=== PATIENT | female | born 1995 | race Two or more races ===

== ENCOUNTER 2017-03-28 12:33 | Inpatient (IN) | payer OTHER ==
[2017-03-28] MEDS ORDERED: Sodium Chloride 0.9% 10 ML Syringe FLUSH PRN (13:29)
[2017-03-28] MEDS ORDERED: Sodium Chloride 0.9% 2.5 ML Syringe FLUSH PRN (13:29)
[2017-03-28] MEDS ORDERED: Carboprost Tromethamine 250 MCG/1 ML Amp IM PRN (13:29)
[2017-03-28] MEDS ORDERED: Water For Irrigation,Sterile 1,000 ML Container IRR PRN (13:29)
[2017-03-28] MEDS ORDERED: Butorphanol 1 MG/ML SDV IVPUSH PRN (13:29)
[2017-03-28] MEDS ORDERED: Methylergonovine 0.2 MG/1 ML Amp IM PRN (13:29)
[2017-03-28] MEDS ORDERED: Nalbuphine 10 MG/1 ML Vial IVPUSH PRN (13:29)
[2017-03-28] MEDS ORDERED: Lidocaine 1% 50 ML MDV INJECT PRN (13:29)
[2017-03-28] MEDS ORDERED: Misoprostol 200 MCG Tab PO PRN (13:29)
[2017-03-28] MEDS ORDERED: Oxytocin/Lactated Ringers 30 UNIT/500 ML BAG IV SCH (13:30)
--- NOTE | 2017-03-28 14:41 | PCM.LDHP ---
L&D History of Present Illness - General Date of Service: 03/28/17 Admit Problem/Dx: Patient Status Order with Admit Dx/Problem 03/28/17 12:48 Patient Status [ADT] Routine 03/28/17 13:29 Patient Status [ADT] Routine Admission Diagnosis/Problem Admission Diagnosis/Problem 03/28/17 14:38 21 yo , EDC 03/21/2017 41 wks today. AB+, RI, GBSneg. 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 General: Reports: No Symptoms HEENT: Reports: No Symptoms Pulmonary: Reports: No Symptoms Cardiovascular: Reports: No Symptoms Gastrointestinal: Reports: No Symptoms Genitourinary: Reports: No Symptoms Musculoskeletal: Reports: No Symptoms Skin: Reports: No Symptoms Psychiatric: Reports: No Symptoms Neurological: Reports: No Symptoms Hematologic/Lymphatic: Reports: No Symptoms Immunologic: Reports: No Symptoms L&D Exam - Exam Exam: See Below - Vital Signs Weight: 73.482 kg - Exam General: alert, oriented HEENT: Hearing intact Lungs: Clear to auscultation, Normal respiratory effort Cardiovascular: regular rate, regular rhythm Abdomen: Soft (gravid) Rectal Exam: Deferred Genitourinary: Normal external exam Back Exam: Full Range of Motion Extremities: normal inspection Skin: warm, dry, intact Neurological: cranial nerves intact Psychiatric: alert, normal affect, normal mood - Patient Data Lab Results last 24 hrs: Laboratory Results - last 24 hr 03/28/17 Range/Units 13:49 WBC 7.46 (4.0-11.0) K/uL RBC 4.14 L (4.30-5.90) M/uL Hgb 13.1 (12.0-16.0) g/dL Hct 38.3 (36.0-46.0) % MCV 92.5 (80.0-98.0) fL MCH 31.6 (27.0-32.0) pg MCHC 34.2 (31.0-37.0) g/dL RDW Std Deviation 44.4 (28.0-62.0) fl RDW Coeff of Amairani 13 (11.0-15.0) % Plt Count 182 (150-400) K/uL MPV 10.50 (7.40-12.00) fL Nucleated RBC % 0.0 /100WBC Nucleated RBCs # 0 K/uL Result Diagrams: 03/28/17 13:49 - Problem List (1) Supervision of normal IUP (intrauterine ) in multigravida SNOMED Code(s): 875668126, 771202112, 916001868 ICD Code: Z34.80 - ENCOUNTER FOR SUPRVSN OF NORMAL , UNSP TRIMESTER Status: Acute Current Visit: Yes Qualifiers: Trimester: third trimester Qualified Code(s): Z34.83 - Encounter for supervision of other normal , third trimester Problem List Initiated/Reviewed/Updated: Yes Orders Last 24hrs: Active Orders 24 hr Category Date Time Status Patient Status [ADT] Routine ADT 03/28/17 12:48 Active Patient Status [ADT] Routine ADT 03/28/17 13:29 Active Heart Tones [RC] CONTINUOUS Care 03/28/17 13:29 Active Non Stress Test [RC] PER UNIT ROUTINE Care 03/28/17 12:48 Active Non Stress Test [RC] PER UNIT ROUTINE Care 03/28/17 13:29 Active May Shower [RC] ASDIRECTED Care 03/28/17 13:29 Active Notify Provider [RC] PRN Care 03/28/17 13:29 Active Up ad Gaby [RC] ASDIRECTED Care 03/28/17 12:48 Active Up ad Gaby [RC] ASDIRECTED Care 03/28/17 13:29 Active Vaginal Exam [RC] Click To Edit Care 03/28/17 12:48 Active Vaginal Exam [RC] PRN Care 03/28/17 13:29 Active Vital Signs [RC] PER UNIT ROUTINE Care 03/28/17 12:48 Active Vital Signs [RC] PER UNIT ROUTINE Care 03/28/17 13:29 Active Clear Liquid Diet [DIET] Diet 03/28/17 Dinner Active TYPE AND SCREEN [BBK] Routine Lab 03/28/17 13:49 Received Butorphanol [Stadol] Med 03/28/17 13:29 Active 1 mg IVPUSH Q1H PRN Carboprost Tromethamine [Hemabate DS] Med 03/28/17 13:29 Active 250 mcg IM ASDIRECTED PRN Lactated Ringers [Ringers, Lactated] 1,000 ml Med 03/28/17 13:30 Active IV ASDIRECTED Lidocaine 1% [Xylocaine 1%] Med 03/28/17 13:29 Active 50 ml INJECT .ONCE PRN Methylergonovine [Methergine] Med 03/28/17 13:29 Active 0.2 mg IM ASDIRECTED PRN Misoprostol [Cytotec] Med 03/28/17 13:29 Active 200 mcg PO .ONCE PRN Nalbuphine [Nubain] Med 03/28/17 13:29 Active 10 mg IVPUSH Q1H PRN Sodium Chloride 0.9% [Saline Flush] Med 03/28/17 13:29 Active 10 ml FLUSH ASDIRECTED PRN Sodium Chloride 0.9% [Saline Flush] Med 03/28/17 13:29 Active 2.5 ml FLUSH ASDIRECTED PRN Water For Irrigation,Sterile [Sterile Water for Med 03/28/17 13:29 Active Irrigation] 1,000 ml IRR ASDIRECTED PRN Scalp Electrode [WOMSER] Per Unit Routine Oth 03/28/17 13:29 Ordered Peripheral IV Insertion Adult [OM.PC] Routine Oth 03/28/17 13:29 Ordered Resuscitation Status Routine Resus Stat 03/28/17 12:48 Ordered Medication Orders Butorphanol Tartrate (Stadol) 1 mg IVPUSH Q1H PRN PRN Reason: Pain Carboprost Tromethamine (Hemabate Ds) 250 mcg IM ASDIRECTED PRN PRN Reason: Post Hemorrhage Lactated Ringer's (Ringers, Lactated) 1,000 mls @ 150 mls/hr IV ASDIRECTED SHAUN Lidocaine HCl (Xylocaine 1%) 50 ml INJECT .ONCE PRN PRN Reason: Laceration repair Methylergonovine Maleate (Methergine) 0.2 mg IM ASDIRECTED PRN PRN Reason: Post Hemorrhage Misoprostol (Cytotec) 200 mcg PO .ONCE PRN PRN Reason: Post Hemorrhage Nalbuphine HCl (Nubain) 10 mg IVPUSH Q1H PRN PRN Reason: Pain (severe 7-10) Stop: 03/28/17 15:30 Sodium Chloride (Saline Flush) 10 ml FLUSH ASDIRECTED PRN PRN Reason: Keep Vein Open Sodium Chloride (Saline Flush) 2.5 ml FLUSH ASDIRECTED PRN PRN Reason: Keep Vein Open Sterile Water (Sterile Water For Irrigation) 1,000 ml IRR ASDIRECTED PRN PRN Reason: delivery Assessment/Plan Comment:: Labor A: 21 yo , EDC 03/21/2017 41 wks today. AB+, RI, GBSneg. Active labor, intact P: Admit to L&D, epidural prn. Anticipate
[2017-03-28] MEDS: Lactated Ringers 1,000 ML IV SCH ×3 (17:07→18:05)
--- NOTE | 2017-03-28 17:28 | PCM.PREANE ---
Preanesthetic Assessment - Anesthesia/Transfusion/Family Hx Anesthesia History: Prior Anesthesia Without Reaction Family History of Anesthesia Reaction: No Transfusion History: No Prior Transfusion(s) - Review of Systems General: No Symptoms Pulmonary: No Symptoms Cardiovascular: No Symptoms Gastrointestinal: No symptoms Neurological: No Symptoms Other: Reports: None - Physical Assessment NPO Status Date: 03/28/17 NPO Status Time: 18:19 (cl liquids) Height: 1.68 m Weight: 73.482 kg ASA Class: 2 Mental Status: Alert & Oriented x3 Airway Class: Mallampati = 2 Dentition: Reports: Normal Dentition Thyro-Mental Finger Breadths: 3 Mouth Opening Finger Breadths: 3 ROM/Head Extension: Full Lungs: Clear to auscultation, Normal respiratory effort Cardiovascular: Regular Rate, Regular Rhythm - Lab Values: Laboratory Last Values WBC 7.46 K/uL (4.0-11.0) 03/28/17 13:49 RBC 4.14 M/uL (4.30-5.90) L 03/28/17 13:49 Hgb 13.1 g/dL (12.0-16.0) 03/28/17 13:49 Hct 38.3 % (36.0-46.0) 03/28/17 13:49 MCV 92.5 fL (80.0-98.0) 03/28/17 13:49 MCH 31.6 pg (27.0-32.0) 03/28/17 13:49 MCHC 34.2 g/dL (31.0-37.0) 03/28/17 13:49 RDW Std Deviation 44.4 fl (28.0-62.0) 03/28/17 13:49 RDW Coeff of Amairani 13 % (11.0-15.0) 03/28/17 13:49 Plt Count 182 K/uL (150-400) 03/28/17 13:49 MPV 10.50 fL (7.40-12.00) 03/28/17 13:49 Nucleated RBC % 0.0 /100WBC 03/28/17 13:49 Nucleated RBCs # 0 K/uL 03/28/17 13:49 Blood Type AB POSITIVE 03/28/17 13:49 Antibody Screen NEGATIVE 03/28/17 13:49 - Allergies Allergies/Adverse Reactions: Allergies Allergy/AdvReac Type Severity Reaction Status Date / Time No Known Allergies Allergy Verified 03/28/17 12:47 - Blood Blood Available: Yes Product(s) Available: PRBC - Acknowledgements Anesthesia Type Planned: Epidural Pt an Appropriate Candidate for the Planned Anesthesia: Yes Alternatives and Risks of Anesthesia Discussed w Pt/Guardian: Yes Pt/Guardian Understands and Agrees with Anesthesia Plan: Yes 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: - Infectious Disease History Infectious Disease History: Reports: Chicken pox - Past Surgical History HEENT Surgical History: Reports: Other (see below) Other HEENT Surgeries/Procedures: wisdom tooth extraction - SUBSTANCE USE Smoking Status *Q: Never Smoker Recreational Drug Use History: No - HOME MEDS Home Medications: Home Meds PNV95/Ferrous Fumarate/FA [ Tablet] 1 each PO 03/28/17 [History] - CURRENT (IN HOUSE) MEDS Current Meds: Current Medications Butorphanol Tartrate (Stadol) 1 mg IVPUSH Q1H PRN PRN Reason: Pain Carboprost Tromethamine (Hemabate Ds) 250 mcg IM ASDIRECTED PRN PRN Reason: Post Hemorrhage Lactated Ringer's (Ringers, Lactated) 1,000 mls @ 150 mls/hr IV ASDIRECTED SHAUN Last Admin: 03/28/17 17:07 Dose: 999 mls/hr Lidocaine HCl (Xylocaine 1%) 50 ml INJECT .ONCE PRN PRN Reason: Laceration repair Methylergonovine Maleate (Methergine) 0.2 mg IM ASDIRECTED PRN PRN Reason: Post Hemorrhage Misoprostol (Cytotec) 200 mcg PO .ONCE PRN PRN Reason: Post Hemorrhage Sodium Chloride (Saline Flush) 10 ml FLUSH ASDIRECTED PRN PRN Reason: Keep Vein Open Sodium Chloride (Saline Flush) 2.5 ml FLUSH ASDIRECTED PRN PRN Reason: Keep Vein Open Sterile Water (Sterile Water For Irrigation) 1,000 ml IRR ASDIRECTED PRN PRN Reason: delivery Discontinued Medications Oxytocin/Lactated Ringer's (Pitocin In Lr 30 Units/500 Ml) 30 unit in 500 mls @ 999 mls/hr IV TITRATE SHAUN PRN Reason: 999 MUNITS/MIN Stop: 03/28/17 14:01 Nalbuphine HCl (Nubain) 10 mg IVPUSH Q1H PRN PRN Reason: Pain (severe 7-10) Stop: 03/28/17 15:30 - Free Text/Narrative Note: Labor Analgesia/Epidural Procedure start date: 03/28/17 time: 1735 Attending provider aware Chart reviewed Permit signed Labs reviewed VS/ FHR reviewed Pt identified/ID band Pt assessed Risks/Benefits discussed and accepted Monitors in place (BP, HR, SPO2) Patient, Site, Procedure Verification, Pause. Pain "8/10" Fluid bolus infused (fluid type and amount): 1000 ml LR with infusion ongoing Position: Sitting @ 1745 Prep: Betadine X 3 Sterile Drape Intradermal Wheal: 3 ml 1% Lidocaine Regional placement level: L4-5 Needle: 17 g Tuohy Approach: Midline Technique: MANUEL glass syringe with 3 ml Sterile water MANUEL needle depth: 5 cm Paresthesia: None Fluid Obtained: None Catheter insertion time: 175 Catheter depth at skin: 20 cm Test Dose Time: 175 RX: 3 ml 1.5% lidocaine with 1:200,000 epi Response: Negative Loading dose Time: 3492-8660 RX: 100 mcg fentanyl followed by 10 ml 0.2% ropivacaine in 2 ml increments over 10 minutes Pt position: semi fowlers with OSCAR Continuous infusion Start Time: 1806 RX: 100 ml 0.2% ropivacaine with 200 mcg fentanyl added [2mcg/ml] Continuous infusion rate: 8 ml/hr 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 ) Procedure end date: 03/28/17 time: 1830
[2017-03-28] MEDS ORDERED: fentaNYL 100 MCG/2 ML SDV ONE (17:33)
[2017-03-28] MEDS ORDERED: Ropivacaine 0.2% 2 MG/ML 20 ML SDV ONE (17:34)
[2017-03-28] MEDS ORDERED: Ropivacaine HCl/PF 100 ML ONE (17:34)
[2017-03-28] MEDS ORDERED: Oxytocin/Lactated Ringers 30 UNIT/500 ML BAG ONE (21:01)
[2017-03-28] MEDS ORDERED: Ibuprofen 800 MG Tab PO PRN (21:42)
[2017-03-28] MEDS ORDERED: Docusate Sodium 100 MG Cap PO PRN (21:42)
[2017-03-28] MEDS ORDERED: Witch Hazel Medicated Pads 40/Jar TOP PRN (21:42)
[2017-03-28] MEDS ORDERED: Lanolin 100% Cream 7 GM Tube TOP PRN (21:42)
[2017-03-28] MEDS ORDERED: Benzocaine/Menthol 20%-0.5% Spray 78 GM Cannister TOP PRN (21:42)
[2017-03-28] MEDS ORDERED: Acetaminophen 500 MG Tab PO PRN ×2 (21:42)
[2017-03-28] MEDS ORDERED: oxyCODONE 5 MG Tab PO PRN (21:42)
[2017-03-28] MEDS ORDERED: Ibuprofen 400 MG Tab PO PRN (21:42)
[2017-03-28] MEDS ORDERED: Bisacodyl 10 MG Supp RECTAL PRN (21:42)
--- NOTE | 2017-03-28 21:48 | PCM.DEL ---
L & D Note - General Info Date of Service: 03/28/17 Mother's Due Date: 03/21/17 - Delivery Note Labor: spontaneous Delivery Outcome: Livebirth Infant Delivery Method: Spontaneous Vaginal Delivery Infant Delivery Mode: Spontaneous Presentation: Vertex Nuchal cord: none Anesthesia Type: Epidural Amniotic Fluid Description: Clear Episiotomy Type: None Laceration: 1st degree Suture size: 3-0 Placenta: intact, spontaneous Cord: 3 vessels Resuscitation needed: No [place]: stimulated Score 1 min: 8 Score 5 min: 9 Second Stage Interventions: Reports: Pushing Effectively Delivery Comments (Free Text/Narrative):: of viable girl over intact perineum, Head delivered with good pushing. FOB and I assisted the shoulders and body to follow. to mothers abdomen with RN at for evaluation. Delayed cord clamping. Pitocin to IVF. Cord clamped and cut by FOB. Placenta delivered grossly intact. Inspection noted 1st degree lac that was repaired in the usual manor with a 3-0 fred. Fundus firm. Bimanual normal. EBL 150cc, APGARS 8/9, Wt: 9lb 13oz. Mother and infant left in stable condition for recovery. Counts correct. - General Info Date of Service: 03/28/17 Admission Dx/Problem (Free Text): Patient Status Order with Admit Dx/Problem 03/28/17 12:48 Patient Status [ADT] Routine 03/28/17 13:29 Patient Status [ADT] Routine Admission Diagnosis/Problem Admission Diagnosis/Problem 03/28/17 14:38 21 yo , EDC 03/21/2017 41 wks today. AB+, RI, GBSneg. Active labor, intact Functional Status: Reports: pain controlled - Review of Systems General: Reports: No Symptoms HEENT: Reports: no symptoms Pulmonary: Reports: no symptoms Cardiovascular: Reports: No Symptoms Gastrointestinal: Reports: No symptoms Genitourinary: Reports: no symptoms Musculoskeletal: Reports: no symptoms Skin: Reports: no symptoms Neurological: Reports: No Symptoms Psychiatric: Reports: no symptoms - Patient Data Weight - most recent: 73.482 kg Lab Results last 24 hrs: Laboratory Results - last 24 hr 03/28/17 03/28/17 Range/Units 13:49 13:49 WBC 7.46 (4.0-11.0) K/uL RBC 4.14 L (4.30-5.90) M/uL Hgb 13.1 (12.0-16.0) g/dL Hct 38.3 (36.0-46.0) % MCV 92.5 (80.0-98.0) fL MCH 31.6 (27.0-32.0) pg MCHC 34.2 (31.0-37.0) g/dL RDW Std Deviation 44.4 (28.0-62.0) fl RDW Coeff of Amairani 13 (11.0-15.0) % Plt Count 182 (150-400) K/uL MPV 10.50 (7.40-12.00) fL Nucleated RBC % 0.0 /100WBC Nucleated RBCs # 0 K/uL Blood Type AB POSITIVE Antibody Screen NEGATIVE Med Orders - Current: Current Medications Acetaminophen (Tylenol Extra Strength) 500 mg PO Q4H PRN PRN Reason: Pain Acetaminophen (Tylenol Extra Strength) 1,000 mg PO Q4H PRN PRN Reason: Pain Benzocaine/Menthol (Dermoplast Pain Relief 20%-0.5% [place]) 78 gm TOP ASDIRECTED PRN PRN Reason: Perineal Comfort Measure Bisacodyl (Dulcolax) 10 mg RECTAL .ONCE PRN PRN Reason: Constipation Docusate Sodium (Colace) 100 mg PO BID PRN PRN Reason: Constipation Emollient Ointment (Lansinoh Hpa) 0 gm TOP ASDIRECTED PRN PRN Reason: Sore Nipples Ibuprofen (Motrin) 400 mg PO Q4H PRN PRN Reason: Pain Ibuprofen (Motrin) 800 mg PO Q6H PRN PRN Reason: Pain Oxycodone HCl (Oxycodone) 5 mg PO Q2H PRN PRN Reason: Pain Witch Shey (Tucks) 1 pad TOP ASDIRECTED PRN PRN Reason: comfort care Discontinued Medications Butorphanol Tartrate (Stadol) 1 mg IVPUSH Q1H PRN PRN Reason: Pain Carboprost Tromethamine (Hemabate Ds) 250 mcg IM ASDIRECTED PRN PRN Reason: Post Hemorrhage Fentanyl (Sublimaze) Confirm Administered Dose 300 mcg .ROUTE .STK-MED ONE Stop: 03/28/17 17:34 Lactated Ringer's (Ringers, Lactated) 1,000 mls @ 150 mls/hr IV ASDIRECTED SHAUN Last Admin: 03/28/17 18:05 Dose: 150 mls/hr Oxytocin/Lactated Ringer's (Pitocin In Lr 30 Units/500 Ml) 30 unit in 500 mls @ 999 mls/hr IV TITRATE SHAUN PRN Reason: 999 MUNITS/MIN Stop: 03/28/17 14:01 Last Admin: 03/28/17 21:17 Dose: 999 munits/min, 999 mls/hr Ropivacaine (Naropin 0.2%) Confirm Administered Dose 100 mls @ as directed .ROUTE .STK-MED ONE Stop: 03/28/17 17:35 Oxytocin/Lactated Ringer's (Pitocin In Lr 30 Units/500 Ml) Confirm Administered Dose 30 unit in 500 mls @ as directed .ROUTE .STK-MED ONE Stop: 03/28/17 21:02 Lidocaine HCl (Xylocaine 1%) 50 ml INJECT .ONCE PRN PRN Reason: Laceration repair Methylergonovine Maleate (Methergine) 0.2 mg IM ASDIRECTED PRN PRN Reason: Post Hemorrhage Misoprostol (Cytotec) 200 mcg PO .ONCE PRN PRN Reason: Post Hemorrhage Nalbuphine HCl (Nubain) 10 mg IVPUSH Q1H PRN PRN Reason: Pain (severe 7-10) Stop: 03/28/17 15:30 Ropivacaine (Naropin 0.2%) Confirm Administered Dose 20 ml .ROUTE .STK-MED ONE Stop: 03/28/17 17:35 Sodium Chloride (Saline Flush) 10 ml FLUSH ASDIRECTED PRN PRN Reason: Keep Vein Open Sodium Chloride (Saline Flush) 2.5 ml FLUSH ASDIRECTED PRN PRN Reason: Keep Vein Open Sterile Water (Sterile Water For Irrigation) 1,000 ml IRR ASDIRECTED PRN PRN Reason: delivery - Exam General: alert, oriented, cooperative, no acute distress Lungs: Normal respiratory effort Abdomen: soft, no tenderness, no distension (Female) Exam: Normal External Exam, Normal Bimanual Exam, Vaginal Bleeding, Vaginal Tears Back Exam: Full Range of Motion Extremities: no edema Skin: warm, dry, intact Wound/Incisions: healing well Neurological: no new focal deficit Psy/Mental Status: alert, normal affect, normal mood - Problem List & Annotations (1) Supervision of normal IUP (intrauterine ) in multigravida SNOMED Code(s): 010044121, 304718331, 233689842 Code(s): Z34.80 - ENCOUNTER FOR SUPRVSN OF NORMAL , UNSP TRIMESTER Status: Acute Priority: High Current Visit: Yes Qualifiers: Trimester: third trimester Qualified Code(s): Z34.83 - Encounter for supervision of other normal , third trimester (2) (normal spontaneous vaginal delivery) SNOMED Code(s): 36010072 Code(s): O80 - ENCOUNTER FOR FULL-TERM UNCOMPLICATED DELIVERY Status: Acute Priority: Medium Current Visit: Yes - Problem List Review Problem List Initiated/Reviewed/Updated: Yes - My Orders Last 24 Hours: My Active Orders 03/28/17 12:48 Non Stress Test [RC] PER UNIT ROUTINE Up ad Gaby [RC] ASDIRECTED Vaginal Exam [RC] Click To Edit Vital Signs [RC] PER UNIT ROUTINE 03/28/17 13:29 Heart Tones [RC] CONTINUOUS Non Stress Test [RC] PER UNIT ROUTINE May Shower [RC] ASDIRECTED Notify Provider [RC] PRN Up ad Gaby [RC] ASDIRECTED Vaginal Exam [RC] PRN Vital Signs [RC] PER UNIT ROUTINE 03/28/17 21:42 May Shower [RC] ASDIRECTED Up ad Gaby [RC] ASDIRECTED Vital Signs [RC] PER UNIT ROUTINE Acetaminophen [Tylenol Extra Strength] 1,000 mg PO Q4H PRN Acetaminophen [Tylenol Extra Strength] 500 mg PO Q4H PRN Benzocaine/Menthol [Dermoplast Pain Relief 20%-0.5% [place]] 78 gm TOP ASDIRECTED PRN Bisacodyl [Dulcolax] 10 mg RECTAL .ONCE PRN Docusate Sodium [Colace] 100 mg PO BID PRN Ibuprofen [Motrin] 400 mg PO Q4H PRN Ibuprofen [Motrin] 800 mg PO Q6H PRN Lanolin [Lansinoh HPA] See Dose Instructions TOP ASDIRECTED PRN Witch Shey [Tucks] 1 pad TOP ASDIRECTED PRN oxyCODONE 5 mg PO Q2H PRN Assess Lochia [WOMSER] Per Unit Routine Assess Uterine Involution [WOMSER] Per Unit Routine Peripheral IV Discontinue [OM.PC] Routine Resuscitation Status Routine 03/28/17 21:43 Patient Status [ADT] Routine 03/29/17 Breakfast Regular Diet [DIET] - Assessment Assessment:: of Girl Chanelle. 1st degree lac with repair. EBL 150cc, APGARS 8/9, Wt : 9lb 13oz. Stable - Plan Plan:: Labor A: 21 yo , EDC 03/21/2017 41 wks today. AB+, RI, GBSneg. Active labor, intact P: Admit to L&D, epidural prn. Anticipate Delivery: P: Routine pp plan of care
--- NOTE | 2017-03-29 07:47 | PCM.DCSUM1 ---
Discharge Summary - Hospital Course Free Text/Narrative:: Discharge home with . Follow up 6 weeks or sooner if needed. - Discharge Data Discharge Date: 03/29/17 Discharge Disposition: Home, Self-Care 01 Condition: Good - Discharge Diagnosis/Problem(s) (1) Supervision of normal IUP (intrauterine ) in multigravida SNOMED Code(s): 358537012, 289928082, 762705287 ICD Code: Z34.80 - ENCOUNTER FOR SUPRVSN OF NORMAL , UNSP TRIMESTER Status: Acute Priority: High Current Visit: Yes Qualifiers: Trimester: third trimester Qualified Code(s): Z34.83 - Encounter for supervision of other normal , third trimester (2) (normal spontaneous vaginal delivery) SNOMED Code(s): 00993994 ICD Code: O80 - ENCOUNTER FOR FULL-TERM UNCOMPLICATED DELIVERY Status: Acute Priority: Medium Current Visit: Yes - Patient Instructions Diet: Usual Diet as Tolerated Activity: As Tolerated, Rest and Relax Today Driving: May Drive Today Showering/Bathing: May Shower Notify Provider of: Fever, Increased Pain, Swelling and Redness, Nausea and/or Vomiting Other/Special Instructions: Discharge home with . Follow up 6 weeks or sooner if needed. - Discharge Plan Home Medications: Home Meds PNV95/Ferrous Fumarate/FA [ Tablet] 1 each PO 03/28/17 [History] - General Info Date of Service: 03/29/17 Admission Dx/Problem (Free Text: Patient Status Order with Admit Dx/Problem 03/28/17 12:48 Patient Status [ADT] Routine 03/28/17 13:29 Patient Status [ADT] Routine Admission Diagnosis/Problem Admission Diagnosis/Problem 03/28/17 14:38 21 yo , EDC 03/21/2017 41 wks today. AB+, RI, GBSneg. Active labor, intact Functional Status: Reports: pain controlled, tolerating diet, ambulating, urinating - Review of Systems General: Reports: No Symptoms HEENT: Reports: no symptoms Pulmonary: Reports: no symptoms Cardiovascular: Reports: No Symptoms Gastrointestinal: Reports: No symptoms Genitourinary: Reports: no symptoms Musculoskeletal: Reports: no symptoms Skin: Reports: no symptoms Neurological: Reports: No Symptoms Psychiatric: Reports: no symptoms - Patient Data Vitals - Most Recent: Last Vital Signs Temp 37.0 C 03/29/17 04:00 Pulse 94 03/29/17 04:00 Resp 14 03/29/17 04:00 BP 126/58 L 03/29/17 04:00 Pulse Ox 94 L 03/29/17 04:00 Weight - Most Recent: 73.482 kg Lab Results - Last 24 hrs: Laboratory Results - last 24 hr 03/28/17 03/28/17 Range/Units 13:49 13:49 WBC 7.46 (4.0-11.0) K/uL RBC 4.14 L (4.30-5.90) M/uL Hgb 13.1 (12.0-16.0) g/dL Hct 38.3 (36.0-46.0) % MCV 92.5 (80.0-98.0) fL MCH 31.6 (27.0-32.0) pg MCHC 34.2 (31.0-37.0) g/dL RDW Std Deviation 44.4 (28.0-62.0) fl RDW Coeff of Amairani 13 (11.0-15.0) % Plt Count 182 (150-400) K/uL MPV 10.50 (7.40-12.00) fL Nucleated RBC % 0.0 /100WBC Nucleated RBCs # 0 K/uL Blood Type AB POSITIVE Antibody Screen NEGATIVE Med Orders - Current: Current Medications Acetaminophen (Tylenol Extra Strength) 500 mg PO Q4H PRN PRN Reason: Pain Acetaminophen (Tylenol Extra Strength) 1,000 mg PO Q4H PRN PRN Reason: Pain Benzocaine/Menthol (Dermoplast Pain Relief 20%-0.5% [place]) 78 gm TOP ASDIRECTED PRN PRN Reason: Perineal Comfort Measure Last Admin: 03/28/17 21:55 Dose: 1 can Bisacodyl (Dulcolax) 10 mg RECTAL .ONCE PRN PRN Reason: Constipation Docusate Sodium (Colace) 100 mg PO BID PRN PRN Reason: Constipation Emollient Ointment (Lansinoh Hpa) 0 gm TOP ASDIRECTED PRN PRN Reason: Sore Nipples Last Admin: 03/28/17 21:55 Dose: 1 tube Ibuprofen (Motrin) 400 mg PO Q4H PRN PRN Reason: Pain Ibuprofen (Motrin) 800 mg PO Q6H PRN PRN Reason: Pain Oxycodone HCl (Oxycodone) 5 mg PO Q2H PRN PRN Reason: Pain Witch Shey (Tucks) 1 pad TOP ASDIRECTED PRN PRN Reason: comfort care Discontinued Medications Butorphanol Tartrate (Stadol) 1 mg IVPUSH Q1H PRN PRN Reason: Pain Carboprost Tromethamine (Hemabate Ds) 250 mcg IM ASDIRECTED PRN PRN Reason: Post Hemorrhage Fentanyl (Sublimaze) Confirm Administered Dose 300 mcg .ROUTE .STK-MED ONE Stop: 03/28/17 17:34 Lactated Ringer's (Ringers, Lactated) 1,000 mls @ 150 mls/hr IV ASDIRECTED FOR[facility], [facility]–1983 Last Admin: 03/28/17 18:05 Dose: 150 mls/hr Oxytocin/Lactated Ringer's (Pitocin In Lr 30 Units/500 Ml) 30 unit in 500 mls @ 999 mls/hr IV TITRATE SHAUN PRN Reason: 999 MUNITS/MIN Stop: 03/28/17 14:01 Last Admin: 03/28/17 21:17 Dose: 999 munits/min, 999 mls/hr Ropivacaine (Naropin 0.2%) Confirm Administered Dose 100 mls @ as directed .ROUTE .STK-MED ONE Stop: 03/28/17 17:35 Oxytocin/Lactated Ringer's (Pitocin In Lr 30 Units/500 Ml) Confirm Administered Dose 30 unit in 500 mls @ as directed .ROUTE .STK-MED ONE Stop: 03/28/17 21:02 Lidocaine HCl (Xylocaine 1%) 50 ml INJECT .ONCE PRN PRN Reason: Laceration repair Methylergonovine Maleate (Methergine) 0.2 mg IM ASDIRECTED PRN PRN Reason: Post Hemorrhage Misoprostol (Cytotec) 200 mcg PO .ONCE PRN PRN Reason: Post Hemorrhage Nalbuphine HCl (Nubain) 10 mg IVPUSH Q1H PRN PRN Reason: Pain (severe 7-10) Stop: 03/28/17 15:30 Ropivacaine (Naropin 0.2%) Confirm Administered Dose 20 ml .ROUTE .STK-MED ONE Stop: 03/28/17 17:35 Sodium Chloride (Saline Flush) 10 ml FLUSH ASDIRECTED PRN PRN Reason: Keep Vein Open Sodium Chloride (Saline Flush) 2.5 ml FLUSH ASDIRECTED PRN PRN Reason: Keep Vein Open Sterile Water (Sterile Water For Irrigation) 1,000 ml IRR ASDIRECTED PRN PRN Reason: delivery - Exam General: Reports: alert, oriented, cooperative, no acute distress Lungs: Reports: Clear to auscultation, Normal respiratory effort Cardiovascular: Reports: Regular Rate, Regular Rhythm Abdomen: Reports: soft, no tenderness, no distension (Female) Exam: Vaginal Bleeding Rectal (Female) Exam: Deferred Back Exam: Reports: Full Range of Motion Extremities: Reports: no edema, normal pulses, no calf tenderness Skin: Reports: warm, dry, intact Wound/Incisions: Reports: healing well Neurological: Reports: no new focal deficit Psy/Mental Status: Reports: alert, normal affect, normal mood *Q Meaningful Use (DIS) - VTE *Q VTE Criteria *Q: - Stroke *Q Stroke Criteria *Q: - AMI *Q AMI Criteria *Q:
[2017-03-29 16:18] VITALS: BP 119/76
== END 2017-03-29 19:00 | disposition home or self-care (01) | DRG 775 ==
LOC: MW.OBCHECK 12:33 → MW.OB 12:34 → OBSVTOIN 21:17 → MW.OB 03-29 02:11
PROVIDERS: ADMIT Obstetrics & Gynecology; ATTEND Advanced Practice Midwife
PROC: 10E0XZZ Delivery of Products of Conception, External Approach (ICD-10-PCS; principal; 2017-03-28)
PROC: 0HQ9XZZ Repair Perineum Skin, External Approach (ICD-10-PCS; 2017-03-28)
DX: O70.0 First degree perineal laceration during delivery (principal); Z3A.41 41 weeks gestation of pregnancy; Z37.0 Single live birth
CPT/HCPCS: 01967; 59025; 85027; 86850; 86900; 86901; A9270-GY; J7120

== ENCOUNTER 2018-05-29 08:57 | Inpatient (IN) | payer BC ==
--- NOTE | 2018-05-29 09:18 | PCM.HP ---
H&P History of Present Illness - General Date of Service: 05/29/18 Admit Problem/Dx: 22 yo EDC 06/03/2018 39 2/7wks Transferred care to us at 37 weeks. AB+, RI, GBS neg. 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: - Infectious Disease History Infectious Disease History: Reports: Chicken Pox - Past Surgical History HEENT Surgical History: Reports: Other (See Below) H&P Review of Systems - Review of Systems: Review Of Systems: See Below General: Reports: No Symptoms HEENT: Reports: No Symptoms Pulmonary: Reports: No Symptoms Cardiovascular: Reports: No Symptoms Gastrointestinal: Reports: No Symptoms Genitourinary: Reports: No Symptoms Musculoskeletal: Reports: No Symptoms Skin: Reports: No Symptoms Psychiatric: Reports: No Symptoms Neurological: Reports: No Symptoms Hematologic/Lymphatic: Reports: No Symptoms Immunologic: Reports: No Symptoms Exam - Exam Exam: See Below - Exam General: Alert, Oriented, Cooperative HEENT: Hearing Intact Lungs: Clear to Auscultation, Normal Respiratory Effort Cardiovascular: Regular Rate, Regular Rhythm, Normal S1, Normal S2 GI/Abdominal Exam: Soft (Female) Exam: Normal External Exam, Normal Bimanual Exam, Cervical Dilatation Rectal (Female) Exam: Deferred Back Exam: Normal Inspection, Full Range of Motion, NT Extremities: Normal Inspection, Normal Range of Motion, Non-Tender, No Pedal Edema, Normal Capillary Refill Skin: Warm, Dry, Intact Neurological: Cranial Nerves Intact, Reflexes Equal Bilateral, Strength Equal Bilateral, Normal Speech, Normal Tone Neuro Extensive - Mental Status: Alert, Oriented x3, Normal Mood/Affect, Normal Cognition, Memory Intact Neuro Extensive - Motor, Sensory, Reflexes: CN II-XII Intact Psychiatric: Alert, Normal Affect, Normal Mood - Problem List (1) Supervision of normal IUP (intrauterine ) in multigravida SNOMED Code(s): 112828291, 411036721, 268938476 ICD Code: Z34.80 - ENCOUNTER FOR SUPRVSN OF NORMAL , UNSP TRIMESTER Status: Acute Priority: High Current Visit: No Qualifiers: Trimester: third trimester Qualified Code(s): Z34.83 - Encounter for supervision of other normal , third trimester Problem List Initiated/Reviewed/Updated: Yes Assessment/Plan Comment:: A:22 yo EDC 06/03/2018 39 2/7wks Transferred care to us at 37 weeks. AB+ , RI, GBS neg. Active labor P: Admit, desires natural labor, encouraged to get out of be to bath or ball, anticipate . Dr Orlando updated
[2018-05-29] MEDS ORDERED: Butorphanol 1 MG/ML SDV IVPUSH PRN (09:26)
[2018-05-29] MEDS ORDERED: Sodium Chloride 0.9% 2.5 ML Syringe FLUSH PRN (09:26)
[2018-05-29] MEDS ORDERED: Misoprostol 200 MCG Tab PO PRN (09:26)
[2018-05-29] MEDS ORDERED: Water For Irrigation,Sterile 1,000 ML Container IRR PRN (09:26)
[2018-05-29] MEDS ORDERED: Nalbuphine 10 MG/ML 10 ML MDV IVPUSH PRN (09:26)
[2018-05-29] MEDS ORDERED: Lidocaine 1% 50 ML MDV INJECT PRN (09:26)
[2018-05-29] MEDS ORDERED: Methylergonovine 0.2 MG/1 ML Amp IM PRN (09:26)
[2018-05-29] MEDS ORDERED: Tranexamic Acid 1,000 MG in Sodium Chloride 0.9% 100 ML IV PRN (09:26)
[2018-05-29] MEDS ORDERED: Sodium Chloride 0.9% 10 ML Syringe FLUSH PRN (09:26)
[2018-05-29] MEDS ORDERED: Carboprost Tromethamine 250 MCG/1 ML Amp IM PRN (09:26)
[2018-05-29] MEDS ORDERED: Oxytocin/0.9 % Sodium Chloride 30 UNIT/500 ML BAG IV SCH (09:30)
[2018-05-29] MEDS ORDERED: Lactated Ringers 1,000 ML IV SCH (09:30)
[2018-05-29] MEDS ORDERED: Bisacodyl 10 MG Supp RECTAL PRN (11:13)
[2018-05-29] MEDS ORDERED: Benzocaine/Menthol 20%-0.5% Spray 78 GM Cannister TOP PRN (11:13)
[2018-05-29] MEDS ORDERED: Lanolin 100% Cream 7 GM Tube TOP PRN (11:13)
[2018-05-29] MEDS ORDERED: Ibuprofen 800 MG Tab PO PRN (11:13)
[2018-05-29] MEDS ORDERED: Acetaminophen 500 MG Tab PO PRN ×2 (11:13)
[2018-05-29] MEDS ORDERED: Witch Hazel Medicated Pads 40/Jar TOP PRN (11:13)
[2018-05-29] MEDS ORDERED: Ibuprofen 400 MG Tab PO PRN (11:13)
[2018-05-29] MEDS ORDERED: oxyCODONE 5 MG Tab PO PRN (11:13)
[2018-05-29] MEDS ORDERED: Docusate Sodium 100 MG Cap PO PRN (11:13)
--- NOTE | 2018-05-29 11:20 | PCM.DEL ---
L & D Note - General Info Date of Service: 05/29/18 Mother's Due Date: 06/03/18 - Delivery Note Labor: Spontaneous Delivery Outcome: Livebirth Infant Delivery Method: Spontaneous Vaginal Delivery-Single Delivery Mode: Spontaneous Presentation: Vertex Nuchal Cord: None Anesthetic: Lidocaine (Xylocaine) 1% Plain Local Anesthetic Volume: 1cc Amniotic Fluid Description: Clear Episiotomy Type: None Laceration: 1st Degree, Perineal Suture type: Vicryl Suture size: 3-0 Placenta: Intact, Spontaneous Cord: 3 Vessels Estimated Blood Loss: 100 Resuscitation Needed: No Score 1 min: 9 Score 5 min: 9 Second Stage Interventions: Reports: Pushing, Pulls Own Legs Back Delivery Comments (Free Text/Narrative):: of viable female over intact perineum, head delivered with great controlled pushing, shoulders and body followed easily. Infant with spont cry placed on mothers abd with RN at for evaluation. Delayed cord clamping, pitocin to IVF. Cord clamped x2 and cut by FOB. Placenta delivered grossly intact. Inspection noted 1st degree bird lac that was repaired with a 3-0 fred in the usual manor after local anes of lidocaine administered. Bimanual normal, EBL 100cc, APGARS 9/9 wt pending bonding. Mother and baby left in stable condition for recovery. - General Info Date of Service: 05/29/18 Admission Dx/Problem (Free Text): 22 yo EDC 06/03/2018 39 2/7wks Transferred care to us at 37 weeks. AB+, RI, GBS neg. Active labor Functional Status: Reports: Pain Controlled - Review of Systems General: Reports: No Symptoms HEENT: Reports: No Symptoms Pulmonary: Reports: No Symptoms Cardiovascular: Reports: No Symptoms Gastrointestinal: Reports: No Symptoms Genitourinary: Reports: No Symptoms Musculoskeletal: Reports: No Symptoms Skin: Reports: No Symptoms Neurological: Reports: No Symptoms Psychiatric: Reports: No Symptoms - Patient Data Weight - Most Recent: 77.111 kg Lab Results Last 24 Hours: Laboratory Results - last 24 hr 05/29/18 Range/Units 09:45 WBC 6.98 (4.0-11.0) K/uL RBC 3.92 L (4.30-5.90) M/uL Hgb 12.4 (12.0-16.0) g/dL Hct 36.5 (36.0-46.0) % MCV 93.1 (80.0-98.0) fL MCH 31.6 (27.0-32.0) pg MCHC 34.0 (31.0-37.0) g/dL RDW Std Deviation 44.1 (28.0-62.0) fl RDW Coeff of Amairani 13 (11.0-15.0) % Plt Count 170 (150-400) K/uL MPV 10.50 (7.40-12.00) fL Nucleated RBC % 0.0 /100WBC Nucleated RBCs # 0 K/uL Med Orders - Current: Current Medications Acetaminophen (Tylenol Extra Strength) 500 mg PO Q4H PRN PRN Reason: Pain Acetaminophen (Tylenol Extra Strength) 1,000 mg PO Q4H PRN PRN Reason: Pain Benzocaine/Menthol (Dermoplast Pain Relief 20%-0.5% [place]) 78 gm TOP ASDIRECTED PRN PRN Reason: Perineal Comfort Measure Bisacodyl (Dulcolax) 10 mg RECTAL .ONCE PRN PRN Reason: Constipation Docusate Sodium (Colace) 100 mg PO BID PRN PRN Reason: Constipation Emollient Ointment (Lansinoh Hpa) 0 gm TOP ASDIRECTED PRN PRN Reason: Sore Nipples Ibuprofen (Motrin) 400 mg PO Q4H PRN PRN Reason: Pain Ibuprofen (Motrin) 800 mg PO Q6H PRN PRN Reason: Pain Oxycodone HCl (Oxycodone) 5 mg PO Q2H PRN PRN Reason: Pain Witch Shey (Tucks) 1 pad TOP ASDIRECTED PRN PRN Reason: comfort care Discontinued Medications Butorphanol Tartrate (Stadol) 1 mg IVPUSH Q1H PRN PRN Reason: Pain Carboprost Tromethamine (Hemabate Ds) 250 mcg IM ASDIRECTED PRN PRN Reason: Post Hemorrhage Lactated Ringer's (Ringers, Lactated) 1,000 mls @ 150 mls/hr IV ASDIRECTED SHAUN Oxytocin/Sodium Chloride (Oxytocin 30 Unit/500 Ml-Ns) 30 unit in 500 mls @ 500 mls/hr IV TITRATE SHAUN Tranexamic Acid 1,000 mg/ (Sodium Chloride) 110 mls @ 660 mls/hr IV ONETIME PRN PRN Reason: Bleeding Lidocaine HCl (Xylocaine 1%) 50 ml INJECT .ONCE PRN PRN Reason: Laceration repair Methylergonovine Maleate (Methergine) 0.2 mg IM ASDIRECTED PRN PRN Reason: Post Hemorrhage Misoprostol (Cytotec) 200 mcg PO .ONCE PRN PRN Reason: Post Hemorrhage Nalbuphine HCl (Nubain) 10 mg IVPUSH Q1H PRN PRN Reason: Pain (severe 7-10) Sodium Chloride (Saline Flush) 10 ml FLUSH ASDIRECTED PRN PRN Reason: Keep Vein Open Sodium Chloride (Saline Flush) 2.5 ml FLUSH ASDIRECTED PRN PRN Reason: Keep Vein Open Sterile Water (Sterile Water For Irrigation) 1,000 ml IRR ASDIRECTED PRN PRN Reason: delivery - Exam General: Alert, Oriented, Cooperative, No Acute Distress Lungs: Normal Respiratory Effort (Female) Exam: Normal External Exam, Normal Bimanual Exam, Vaginal Bleeding, Vaginal Tears Back Exam: Normal Inspection, Full Range of Motion Extremities: Normal Inspection, Normal Range of Motion, Non-Tender, No Pedal Edema, Normal Capillary Refill Skin: Warm, Dry, Intact Wound/Incisions: Healing Well Neurological: No New Focal Deficit, Normal Speech, Normal Tone, Strength Equal Bilateral Psy/Mental Status: Alert, Normal Affect, Normal Mood - Problem List & Annotations (1) Supervision of normal IUP (intrauterine ) in multigravida SNOMED Code(s): 726160194, 727728049, 237255958 Code(s): Z34.80 - ENCOUNTER FOR SUPRVSN OF NORMAL , UNSP TRIMESTER Status: Acute Priority: High Current Visit: No Qualifiers: Trimester: third trimester Qualified Code(s): Z34.83 - Encounter for supervision of other normal , third trimester (2) (normal spontaneous vaginal delivery) SNOMED Code(s): 70666884 Code(s): O80 - ENCOUNTER FOR FULL-TERM UNCOMPLICATED DELIVERY Status: Acute Priority: High Current Visit: No - Problem List Review Problem List Initiated/Reviewed/Updated: Yes - My Orders Last 24 Hours: My Active Orders 05/29/18 11:13 May Shower [RC] ASDIRECTED Up ad Gaby [RC] ASDIRECTED Vital Signs [RC] PER UNIT ROUTINE Acetaminophen [Tylenol Extra Strength] 1,000 mg PO Q4H PRN Acetaminophen [Tylenol Extra Strength] 500 mg PO Q4H PRN Benzocaine/Menthol [Dermoplast Pain Relief 20%-0.5% Barre] 78 gm TOP ASDIRECTED PRN Bisacodyl [Dulcolax] 10 mg RECTAL .ONCE PRN Docusate Sodium [Colace] 100 mg PO BID PRN Ibuprofen [Motrin] 400 mg PO Q4H PRN Ibuprofen [Motrin] 800 mg PO Q6H PRN Lanolin [Lansinoh HPA] See Dose Instructions TOP ASDIRECTED PRN Witch Shey [Tucks] 1 pad TOP ASDIRECTED PRN oxyCODONE 5 mg PO Q2H PRN Assess Lochia [WOMSER] Per Unit Routine Assess Uterine Involution [WOMSER] Per Unit Routine Peripheral IV Discontinue [OM.PC] Routine Resuscitation Status Routine 05/29/18 11:14 Patient Status [ADT] Routine 05/29/18 Lunch Regular Diet [DIET] - Plan Plan:: A:22 yo EDC 06/03/2018 39 2/7wks Transferred care to us at 37 weeks. AB+ , RI, GBS neg. Active labor P: Admit, desires natural labor, encouraged to get out of be to bath or ball, anticipate . Dr Orlando updated Delivery A: of viable female, APGARS 9/9 wt pending bonding, EBL 100cc, 1st deg bird lac with repair. Mother and baby stable P: Routine pp plan of care
[2018-05-30] MEDS ORDERED: Benzocaine/Cetylpyridinium/Menthol Lozenge MUCMEM PRN (07:37)
[2018-05-30 07:42] VITALS: BP 117/65
--- NOTE | 2018-05-30 10:12 | PCM.PNPP ---
- General Info Date of Service: 05/30/18 Functional Status: Reports: Pain Controlled - Review of Systems General: Reports: No Symptoms HEENT: Reports: No Symptoms Pulmonary: Reports: No Symptoms Cardiovascular: Reports: No Symptoms Gastrointestinal: Reports: No Symptoms Genitourinary: Reports: No Symptoms Musculoskeletal: Reports: No Symptoms Skin: Reports: No Symptoms Neurological: Reports: No Symptoms Psychiatric: Reports: No Symptoms - General Info Date of Service: 05/30/18 - Patient Data Vital Signs - Most Recent: Last Vital Signs Temp 37.0 C 05/30/18 07:20 Pulse 73 05/30/18 07:20 Resp 15 05/30/18 07:20 BP 117/65 05/30/18 07:20 Pulse Ox 95 05/30/18 07:20 Weight - Most Recent: 77.111 kg Lab Results - Last 24 Hours: Laboratory Results - last 24 hr 05/29/18 05/29/18 Range/Units 09:45 09:45 WBC 6.98 (4.0-11.0) K/uL RBC 3.92 L (4.30-5.90) M/uL Hgb 12.4 (12.0-16.0) g/dL Hct 36.5 (36.0-46.0) % MCV 93.1 (80.0-98.0) fL MCH 31.6 (27.0-32.0) pg MCHC 34.0 (31.0-37.0) g/dL RDW Std Deviation 44.1 (28.0-62.0) fl RDW Coeff of Amairani 13 (11.0-15.0) % Plt Count 170 (150-400) K/uL MPV 10.50 (7.40-12.00) fL Nucleated RBC % 0.0 /100WBC Nucleated RBCs # 0 K/uL Blood Type AB POSITIVE Antibody Screen NEGATIVE Med Orders - Current: Current Medications Acetaminophen (Tylenol Extra Strength) 500 mg PO Q4H PRN PRN Reason: Pain Acetaminophen (Tylenol Extra Strength) 1,000 mg PO Q4H PRN PRN Reason: Pain Benzocaine/Menthol (Dermoplast Pain Relief 20%-0.5% [place]) 78 gm TOP ASDIRECTED PRN PRN Reason: Perineal Comfort Measure Benzocaine/Menthol (Cepacol Sore Throat) 1 lozenge MUCMEM Q1H PRN PRN Reason: Sore Throat Bisacodyl (Dulcolax) 10 mg RECTAL .ONCE PRN PRN Reason: Constipation Docusate Sodium (Colace) 100 mg PO BID PRN PRN Reason: Constipation Emollient Ointment (Lansinoh Hpa) 0 gm TOP ASDIRECTED PRN PRN Reason: Sore Nipples Ibuprofen (Motrin) 400 mg PO Q4H PRN PRN Reason: Pain Ibuprofen (Motrin) 800 mg PO Q6H PRN PRN Reason: Pain Last Admin: 05/30/18 07:21 Dose: 800 mg Oxycodone HCl (Oxycodone) 5 mg PO Q2H PRN PRN Reason: Pain Witch Shey (Tucks) 1 pad TOP ASDIRECTED PRN PRN Reason: comfort care Last Admin: 05/29/18 16:03 Dose: 1 carton Discontinued Medications Butorphanol Tartrate (Stadol) 1 mg IVPUSH Q1H PRN PRN Reason: Pain Carboprost Tromethamine (Hemabate Ds) 250 mcg IM ASDIRECTED PRN PRN Reason: Post Hemorrhage Lactated Ringer's (Ringers, Lactated) 1,000 mls @ 150 mls/hr IV ASDIRECTED SHAUN Oxytocin/Sodium Chloride (Oxytocin 30 Unit/500 Ml-Ns) 30 unit in 500 mls @ 500 mls/hr IV TITRATE SHANU Tranexamic Acid 1,000 mg/ (Sodium Chloride) 110 mls @ 660 mls/hr IV ONETIME PRN PRN Reason: Bleeding Lidocaine HCl (Xylocaine 1%) 50 ml INJECT .ONCE PRN PRN Reason: Laceration repair Last Admin: 05/29/18 10:50 Dose: 50 ml Methylergonovine Maleate (Methergine) 0.2 mg IM ASDIRECTED PRN PRN Reason: Post Hemorrhage Misoprostol (Cytotec) 200 mcg PO .ONCE PRN PRN Reason: Post Hemorrhage Nalbuphine HCl (Nubain) 10 mg IVPUSH Q1H PRN PRN Reason: Pain (severe 7-10) Sodium Chloride (Saline Flush) 10 ml FLUSH ASDIRECTED PRN PRN Reason: Keep Vein Open Sodium Chloride (Saline Flush) 2.5 ml FLUSH ASDIRECTED PRN PRN Reason: Keep Vein Open Sterile Water (Sterile Water For Irrigation) 1,000 ml IRR ASDIRECTED PRN PRN Reason: delivery - Interaction Disposition, : in Room with Family Interaction: Holding Infant Feeding: Attempted ; Nursed Fair/Poor Support 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 Episiotomy/Laceration: Approximated Bladder Status: Voiding Urinary Elimination: Voided - Exam General: Alert, Oriented HEENT: Pupils Equal Neck: Supple Lungs: Clear to Auscultation, Normal Respiratory Effort Cardiovascular: Regular Rate, Regular Rhythm GI/Abdominal Exam: Normal Bowel Sounds, Soft, Non-Tender, No Organomegaly, No Distention, No Abnormal Bruit, No Mass, Pelvis Stable Extremities: Normal Inspection, Normal Range of Motion, Non-Tender, No Pedal Edema, Normal Capillary Refill Skin: Warm, Dry, Intact Wound/Incisions: Healing Well Neurological: No New Focal Deficit Psy/Mental Status: Alert, Normal Affect, Normal Mood - Problem List Review Problem List Initiated/Reviewed/Updated: Yes - My Orders Last 24 Hours: My Active Orders 05/29/18 09:26 Heart Tones [RC] CONTINUOUS Non Stress Test [RC] PER UNIT ROUTINE May Shower [RC] ASDIRECTED Notify Provider [RC] PRN Up ad Gaby [RC] ASDIRECTED Vaginal Exam [RC] PRN Vital Signs [RC] PER UNIT ROUTINE 05/29/18 Lunch Regular Diet [DIET] 05/30/18 07:37 Benzocaine/Cetylpyrd/Menthol [Cepacol Sore Throat] 1 lozenge MUCMEM Q1H PRN - Plan Plan:: A:22 yo EDC 06/03/2018 39 2/7wks Transferred care to us at 37 weeks. AB+ , RI, GBS neg. Active labor P: Admit, desires natural labor, encouraged to get out of be to bath or ball, anticipate . Dr Orlando updated Delivery A: of viable female, APGARS 9/9 wt pending bonding, EBL 100cc, 1st deg bird lac with repair. Mother and baby stable P: Routine pp plan of care
== END 2018-05-30 13:20 | disposition home or self-care (01) | DRG 560 ==
LOC: MW.OBCHECK 08:57 → MW.OB 09:16 → OBSVTOIN 10:48 → MW.OB 10:48
PROVIDERS: ADMIT Obstetrics & Gynecology; ATTEND Obstetrics & Gynecology
PROC: 10E0XZZ Delivery of Products of Conception, External Approach (ICD-10-PCS; principal; 2018-05-29)
PROC: 0HQ9XZZ Repair Perineum Skin, External Approach (ICD-10-PCS; 2018-05-29)
DX: O70.0 First degree perineal laceration during delivery (principal); Z3A.39 39 weeks gestation of pregnancy; Z37.0 Single live birth
CPT/HCPCS: 36415; 59025; 59409; 85027; 86850; 86900; 86901; A9270-GY